=== PATIENT | male | born 1980 | race Caucasian/White ===

== ENCOUNTER → 2017-08-31 | Outpatient (CLI) | payer OTHER ==
--- NOTE | 2017-08-31 13:57 | KCIC ---
Ultrasound scrotum 08/31/2017 CLINICAL INDICATION: Left scrotal and inguinal pain. Possible hernia. COMPARISON: None. FINDINGS: Right testis measures 4.4 x 2.2 x 2.1 cm with homogeneous echotexture. There is normal intratesticular blood flow. There is a tiny cyst in the right epididymal head measuring up to 0.6 cm. Left testis measures 3.4 x 2.8 x 2.5 cm with homogeneous echotexture. There is normal intratesticular blood flow. There is enlargement of the area of the epididymis which likely represents a appendix testis without evidence of torsion. There is a small left hydrocele. IMPRESSION: 1. Asymmetric enlargement at the area of the epididymal head with no associated hypervascularity. Findings may represent a normal testicular appendage, however early epididymitis cannot be excluded. Clinical correlation and follow-up testicular ultrasound is recommended. 2. Small left hydrocele. 3. Small right epididymal head cyst, likely spermatocele. Electronically signed by: Feng Bunch MD (08/31/2017 1:53 PM) [id number]
== END | disposition home or self-care (01) ==
LOC: KCIC US 11:47
PROVIDERS: ATTEND Family Medicine
DX: N43.3 Hydrocele, unspecified (principal)
CPT/HCPCS: 76870

== ENCOUNTER 2021-03-25 21:18 | Inpatient (IN) | payer OTHER ==
[~2021-03-25] VITALS: Ht 188 cm; Wt 259.1 kg
[~2021-03-25 21:18] MED LIST: ATOR10TA60 PO; COLC0.6T34 PO; FERR240T2 PO; FURO80TA72 PO; HYDR25TA10 PO; LINE600T12 PO; LISI-130 PO; LOSA25TA54 PO; METF500T16 PO; METO-239 PO; NYST15PO2 TP; TORS100T3 PO
--- NOTE | 2021-03-26 03:00 | PHYS DOC ---
Past Medical History Past Medical History: Hypertension Additional Past Medical Histor: pre-DM, iron deficiency, "lipidemia",MORBID OBESITY Past Surgical History: Other Additional Past Surgical Histo: umbilical hernia repair, BLE varicose vein stripping Smoking Status: Current Every Day Smoker Alcohol Use: None General Adult EDM: Chief Complaint: WEIGHT GAIN HPI: HPI: 40-year-old male presents for diuresis due to weight gain. Patient has a past medical history of heart failure and bilateral lower extremity edema. Patient states he has had a recent 20 pound weight gain. Weight gain is primarily in his bilateral lower extremities. Patient states primary care physician advised patient to go to the hospital for admission for IV diuresis. Patient denies any associated chest pain or shortness of breath. Review of Systems: Review of Systems: Review of systems: Constitutional symptoms- No fever, no chills. Eyes- No Discharge, No Visual Loss Respiratory symptoms- No shortness of breath, No wheezing, No Dyspnea on Exertion Cardiovascular Systems; No chest pain, No Palpitations, No syncope Gastrointestinal symptoms: NO abdominal pain, no nausea, no vomiting or diarrhea. Genitourinary symptoms: No dysuria. Musculoskeletal symptoms: No back pain No extremity pain. Bilateral lower extremity edema NEUROLOGICAL Symptoms: No headache, no generalized weakness; No focal Weakness Skin: No rash. Heart Score: C/O Chest Pain: N/A Risk Factors: Risk Factors: DM, Current or recent (<one month) smoker, HTN, HLP, family history of CAD, obesity. Risk Scores: Score 0 - 3: 2.5% MACE over next 6 weeks - Discharge Home Score 4 - 6: 20.3% MACE over next 6 weeks - Admit for Clinical Observation Score 7 - 10: 72.7% MACE over next 6 weeks - Early Invasive Strategies Allergies: Allergies: Allergies Coded Allergies Type Severity Reaction Last Updated Verified No Known Drug Allergies 01/20/21 No Physical Exam: PE: Constitutional: Well developed, well nourished, no acute distress, non-toxic appearance. [] HENT: Normocephalic, atraumatic, bilateral external ears normal, oropharynx moist, no oral exudates, nose normal. [] Eyes: PERRLA, EOMI, conjunctiva normal, no discharge. [] Neck: Normal range of motion, no tenderness, supple, no stridor. [] Cardiovascular:Heart rate regular rhythm, no murmur [] Lungs & Thorax: Bilateral breath sounds clear to auscultation [] Abdomen: Bowel sounds normal, soft, no tenderness, no masses, no pulsatile masses. [] Skin: Warm, dry, no erythema, no rash. [] Back: No tenderness, no CVA tenderness. [] Extremities: No tenderness, no cyanosis, no clubbing, ROM intact, bilateral lower extremity edema. [] Neurologic: Alert and oriented X 3, normal motor function, normal sensory function, no focal deficits noted. [] Psychologic: Affect normal, judgement normal, mood normal. [] Current Patient Data: Vital Signs: Vital Signs Date Time Temp Pulse Resp B/P (MAP) Pulse Ox O2 Delivery O2 Flow Rate FiO2 03/25/21 22:45 97.6 96 22 147/70 (87) 96 Nasal Cannula 4.0 97.6 EKG: EKG: [] Radiology/Procedures: Radiology/Procedures: [] Impression: COMPARISON: 02/02/2021 FINDINGS: A frontal view of the chest is obtained. There are decreased lung volumes with associated diffuse interstitial prominence likely due to vascular crowding and atelectasis or interstitial infiltrate. There is no consolidation, pleural effusion or pneumothorax. There is a stable cardiac silhouette. IMPRESSION: Decreased lung volumes with associated increased interstitial opacity due to vascular crowding and atelectasis or interstitial infiltrate. There is no consolidated pneumonia. Course & Med Decision Making: Course & Med Decision Making Pertinent Labs and Imaging studies reviewed. (See chart for details) [] Dragon Disclaimer: Dragon Disclaimer: This electronic medical record was generated, in whole or in part, using a voice recognition dictation system. Departure Departure Impression: Primary Impression: Fluid overload Additional Impression: Bilateral edema of lower extremity Ruled Out: CHF (congestive heart failure) Disposition: ADMITTED INPATIENT Admitting Physician: THONY Condition: STABLE Referrals: DELIA CARRIZALES PA-C (PCP) MEGAN GUZMAN DO Mar 26, 2021 03:00
[2021-03-26] MEDS ORDERED: FUROSEMIDE 40 MG/4 ML VIAL. IVP ONE ×2 (03:15→14:30)
[2021-03-26 04:39] LABS: BASO % 0 % (0-3); EOS # 0.4 x10^3/uL (0.0-0.7); EOS % 4 % (0-3); HEMATOCRIT 36.1 % (39.0-53.0); HEMOGLOBIN 11.3 g/dL (13.0-17.5); LYMPH # 1.3 x10^3/uL (1.0-4.8); LYMPH % 16 % (24-48); MEAN CORPUSCULAR HEMOGLOBIN 27 pg (25-35); MEAN CORPUSCULAR HGB CONC 31 g/dL (31-37); MEAN CORPUSCULAR VOLUME 85 fL (79-100); MONO # 0.5 x10^3/uL (0.0-1.1); MONO % 6 % (0-9); NEUT # 6.1 x10^3/uL (1.8-7.7); NEUT % 74 % (31-73); PLATELET COUNT 244 x10^3/uL (140-400); RED BLOOD COUNT 4.24 x10^6/uL (4.30-5.70); RED CELL DISTRIBUTION WIDTH 20.1 % (11.5-14.5); WHITE BLOOD COUNT 8.3 x10^3/uL (4.0-11.0)
[2021-03-26 04:41] LABS: BLOOD UREA NITROGEN 12 mg/dL (8-26); BUN/CREATININE RATIO 17 (6-20); CALCIUM 8.9 mg/dL (8.5-10.1); CARBON DIOXIDE 42 mmol/L (21-32); CHLORIDE 100 mmol/L (98-107); CREATININE 0.7 mg/dL (0.7-1.3); GFR 124.9; GLUCOSE 132 mg/dL (70-99); POTASSIUM 4.1 mmol/L (3.5-5.1); SODIUM 139 mmol/L (136-145)
[2021-03-26 04:47] LABS: ALBUMIN 2.9 g/dL (3.4-5.0); ALBUMIN/GLOBULIN RATIO 0.6 (1.0-1.7); TOTAL PROTEIN 7.4 g/dL (6.4-8.2)
[2021-03-26 04:48] LABS: ALK PHOS 51 U/L (46-116); ALT (SGPT) 29 U/L (16-63); AST (SGOT) 26 U/L (15-37); TOTAL BILIRUBIN 0.6 mg/dL (0.2-1.0)
[2021-03-26 05:00] VITALS: BP 150/74
[2021-03-26] MEDS ORDERED: TORS100T3 PO (05:24)
[2021-03-26 05:39] LABS: PLT ESTIMATE ADEQUATE (ADEQUATE)
[2021-03-26 05:40] LABS: ANISOCYTOSIS MOD; POLYCHROMASIA SLIGHT
[2021-03-26 07:00] VITALS: BP 108/41
--- NOTE | 2021-03-26 08:07 | RAD ---
EXAM: Chest, single view. HISTORY: Shortness of breath. COMPARISON: 02/02/2021 FINDINGS: A frontal view of the chest is obtained. There are decreased lung volumes with associated d iffuse interstitial prominence likely due to vascular crowding and atelectasis or interstitial infilt rate. There is no consolidation, pleural effusion or pneumothorax. There is a stable cardiac silhouet te. IMPRESSION: Decreased lung volumes with associated increased interstitial opacity due to vascular clinical microbiologist wding and atelectasis or interstitial infiltrate. There is no consolidated pneumonia. Electronically signed by: Elodia Rodriguez MD (03/26/2021 8:05 AM) [id number]
--- NOTE | 2021-03-26 10:23 | NUR ---
SW following. Discussed with RN, pt from home with family, 5L (uses 3-5L at home), cardiac diet. Wound care consulted. RN advised no SW needs at this time. SW will continue to follow.
[2021-03-26 11:00] VITALS: BP 122/53
--- NOTE | 2021-03-26 12:59 | HP ---
ADMIT DATE: 03/26/2021 CHIEF COMPLAINT: Shortness of breath and swelling. HISTORY OF PRESENT ILLNESS: The patient is a pleasant middle-aged white male who has known heart failure. He basically presented with volume overload. He appears to be in acute on chronic systolic and diastolic heart failure, rates his symptoms at 9/10, has been occurring for several days. He increased his home meds but that did not work. I discussed the case with ER physician. We admitted the patient with consultation to Cardiology and the wound care team. PAST MEDICAL HISTORY: Obesity, CHF, hypertension, hyperlipidemia, wounds, iron deficiency anemia, umbilical hernia repair, bilateral lower extremity varicose vein stripping, tobacco abuse. ALLERGIES: None. FAMILY HISTORY: Hypertension. SOCIAL HISTORY: Does not drink, smoke or take drugs. MEDICATIONS: Reviewed, please refer to the MRAD. REVIEW OF SYSTEMS: EXTREMITIES: He complains of edema and swelling. PULMONARY: He complains of shortness of breath. GENERAL: No history of weight change, weakness or fevers. SKIN: No bruising, hair changes or rashes. EYES: No blurred, double or loss of vision. NOSE AND THROAT: No history of nosebleeds, hoarseness or sore throat. HEART: No history of palpitations, chest pain or shortness of breath on exertion. GASTROINTESTINAL: Denies changes in appetite, nausea, vomiting, diarrhea or constipation. GENITOURINARY: No history of frequency, urgency, hesitancy or nocturia. NEUROLOGIC: Denies history of numbness, tingling, tremor or weakness. PSYCHIATRIC: No history of panic, anxiety or depression. ENDOCRINE: No history of heat or cold intolerance, polyuria or polydipsia. PHYSICAL EXAMINATION: ABDOMEN: He is morbidly obese. EXTREMITIES: He has 3+ edema. PULMONARY: He has bibasilar crackles. VITALS: Within normal limits and are stable. GENERAL: No apparent distress. Alert and oriented. HEENT: Normal cephalic atraumatic, external auditory canals are patent. EYES: Extraocular muscles are intact, pupils are equally round and reactive to light and accommodation. MUSCULOSKELETAL: Well developed, well nourished, good range of motion. ENDOCRINE: No thyromegaly was palpated. LYMPHATICS: No cervical chain or axillary nodes were noted. HEMATOPOIETIC: No bruising. NECK: SUPPLE, no JVD, no thyromegaly was noted. HEART: RRR, S1, S2 present. Peripheral pulses intact, no obvious murmurs were noted. NEUROLOGIC: Normal speech, normal tone. A and O x 3, moves all extremities, no obvious focal deficits. PSYCHIATRIC: Normal affect, normal mood. Stable. SKIN: No ulcerations or rashes, good skin turgor, no jaundice. VASCULAR: Good capillary refill, neurovascular bundle appears to be intact. LABORATORY DATA: White count is 8. Troponin is 0. Chest x-ray shows decreased lung volumes with increased interstitial opacity due to vascular crowding and atelectasis or infiltrate. ASSESSMENT AND PLAN: Acute on chronic systolic and diastolic heart failure, morbid obesity, edema, possible pneumonia, volume overload, anemia. The patient has been admitted. We are consulting Cardiology. Serial enzymes, serial EKGs. Will give him IV Lasix if Cardiology agrees. Wound care team to evaluate and treat. Home meds, deep venous thrombosis prophylaxis. Full code. Prognosis is guarded. [facility] [place] DR: Kirti TID: [id number]
--- NOTE | 2021-03-26 13:13 | PDOC2 ---
PRUDENCE KELLY INSURANCE COMPLIANCE ANALYST 03/26/21 1313: CARDIAC CONSULT DATE OF CONSULT Date of Consult DATE: 03/26/21 TIME: 12:57 REASON FOR CONSULT Reason for Consult: Probable CHF REFERRING PHYSICIAN Referring Physician: Nathaly SOURCE Source: Chart review, Patient HISTORY OF PRESENT ILLNESS HISTORY OF PRESENT ILLNESS This is a 40 yo male admitted for complains 20 pound wt gain. Denies any SOA or chest pain. Reports gaining about 20 pounds gradually since 02/24 when he switched from trilogy to bipap since insurance wont cover the trilogy anymore. He reports eating about 300 calories 6 times daily. He limits his hydration to 62 oz daily and urinates about the same as his intake. He exercise and has been using the same scale. He was 262 KG upon DC in january and he is currently 259 KG. He uses O2 4-5 LPM depending on what he is doing. He uses his bipap nightly but not when he is taking a nap. Denies eating extra calories. PAST MEDICAL HISTORY Cardiovascular: CHF, HTN, Hyperlipidemia Pulmonary: Other (long) Heme/Onc: Anemia NOS Musculoskeletal: Other (morbid obesity) Rheumatologic: Gout PAST SURGICAL HISTORY Past Surgical History: Hernia Repair (umbilical), Other (LE vein stripping) FAMILY HISTORY Family History: Diabetes CURRENT MEDICATIONS CURRENT MEDICATIONS Current Medications Medications (Trade) Dose Ordered Sig/Akhil Route PRN Reason Start Time Stop Time Status Last Admin Dose Admin Furosemide (Lasix) 40 mg 1X ONCE IVP 03/26/21 03:15 03/26/21 03:16 DC 03/26/21 04:56 ALLERGIES ALLERGIES: Coded Allergies: No Known Drug Allergies (Unverified , 01/20/21) ROS Review of System 14 point ROS evaluated with pertinent positives noted per HPI PHYSICAL EXAM General: Alert, Oriented X3, Cooperative, No acute distress HEENT: Atraumatic, Mucous membr. moist/pink Lungs: Other (diminished with large body habitus) Heart: Regular rate, Other Abdomen: Soft, Other (morbidly obese) Extremities: No cyanosis, Other (3+ pedal pitting edema) Skin: Other (right posterior thigh wound) Neuro: Normal speech, Sensation intact Psych/Mental Status: Mental status NL, Mood NL MUSCULOSKELETAL: Osteoarthritic changes both hands VITALS/I&O VITALS/I&O: Vital Signs Date Time Temp Pulse Resp B/P (MAP) Pulse Ox O2 Delivery O2 Flow Rate FiO2 03/26/21 11:00 98.8 100 18 122/53 (76) 90 Nasal Cannula 4.0 98.8 LABS Lab: Laboratory Tests Test 03/26/21 04:23 03/26/21 04:34 Sodium Level 139 mmol/L (136-145) Potassium Level 4.1 mmol/L (3.5-5.1) Chloride Level 100 mmol/L (98-107) Carbon Dioxide Level 42 mmol/L (21-32) H Anion Gap (6-14) Blood Urea Nitrogen 12 mg/dL (8-26) Creatinine 0.7 mg/dL (0.7-1.3) Estimated GFR (Cockcroft-Gault) 124.9 BUN/Creatinine Ratio 17 (6-20) Glucose Level 132 mg/dL (70-99) H Calcium Level 8.9 mg/dL (8.5-10.1) Total Bilirubin 0.6 mg/dL (0.2-1.0) Aspartate Amino Transferase (AST) 26 U/L (15-37) Alanine Aminotransferase (ALT) 29 U/L (16-63) Alkaline Phosphatase 51 U/L (46-116) Troponin I Quantitative < 0.017 ng/mL (0.000-0.055) DY-Ned-K-Type Natriuretic Peptide 120 pg/mL (0-124) Total Protein 7.4 g/dL (6.4-8.2) Albumin 2.9 g/dL (3.4-5.0) L Albumin/Globulin Ratio 0.6 (1.0-1.7) L White Blood Count 8.3 x10^3/uL (4.0-11.0) Red Blood Count 4.24 x10^6/uL (4.30-5.70) L Hemoglobin 11.3 g/dL (13.0-17.5) L Hematocrit 36.1 % (39.0-53.0) L Mean Corpuscular Volume 85 fL (79-100) Mean Corpuscular Hemoglobin 27 pg (25-35) Mean Corpuscular Hemoglobin Concent 31 g/dL (31-37) Red Cell Distribution Width 20.1 % (11.5-14.5) H Platelet Count 244 x10^3/uL (140-400) Neutrophils (%) (Auto) 74 % (31-73) H Lymphocytes (%) (Auto) 16 % (24-48) L Monocytes (%) (Auto) 6 % (0-9) Eosinophils (%) (Auto) 4 % (0-3) H Basophils (%) (Auto) 0 % (0-3) Neutrophils # (Auto) 6.1 x10^3/uL (1.8-7.7) Lymphocytes # (Auto) 1.3 x10^3/uL (1.0-4.8) Monocytes # (Auto) 0.5 x10^3/uL (0.0-1.1) Eosinophils # (Auto) 0.4 x10^3/uL (0.0-0.7) Basophils # (Auto) 0.0 x10^3/uL (0.0-0.2) Platelet Estimate Adequate (ADEQUATE) Polychromasia Slight Basophilic Stippling Present Anisocytosis Mod Laboratory Tests 03/26/21 04:34 Laboratory Tests 03/26/21 04:23 ECHOCARDIOGRAM ECHOCARDIOGRAM <Conclusion> The systolic function is low normal. EF 50% Septal motion consistent with conduction abnormality. Otherwise, grossly normal wall motion. Technically very limited images. The right ventricle is moderately dilated. RV Systolic function is mildly reduced. Doppler and Color Flow revealed trace tricuspid regurgitation with an estimated PAP of 52 mmHg. There is mild-moderate pulmonary hypertension. DATE: 01/22/21 [id number] ASSESSMENT/PLAN ASSESSMENT/PLAN 1. Chronic lymphedema with Venous insufficiency and hx of leg vein stripping: exacerbated by heavy wt 2. Chronic diastolic CHF/cor pulmonale: clinically no acute CHF. leg edema is likely due to above and obesity 3. HTN: controlled mostly 4. HLP: on statin 5. Severely morbid obesity: BMI at 73 6. Chronic respiratory failure with LONG/OHS: home bipap and uses 4-5 LPM home O2 continuous 7. Metabolic syndrome 8. Right posterior thigh wound: per PCP Recommendations 1. Reported 20 pound wt gain in 1 month which is disproportionate to clinical findings and reported compliance on his diet, meds and fluid intake. In addition his wt is actually better at 259 Kg compared to his admission from 01/2021. IV lasix today and will transition to his large dose home torsemide tomorrow depending on his renal function and UOP. Daily wt. 2. Continue bipap, he has been denied trilogy coverage 3. Continue home BP regimen. BMP in AM 4. Will need bariatric referral CINDY CASTREJON MD 03/26/211916: CARDIAC CONSULT ASSESSMENT/PLAN ASSESSMENT/PLAN The patient was seen and interviewed as well as examined at the bedside. The chart was reviewed. The case was discussed. Agree with the plan of care. PRUDENCE KELLY APRN Mar 26, 2021 13:13 CINDY CASTREJON MD Mar 26, 2021 19:17
[2021-03-26] MEDS: cefTRIAXone IV Push 1 GM VIAL. IVP SCH (13:42)
[2021-03-26] MEDS: LOSARTAN POTASSIUM 25 MG TABLET. PO SCH (14:53)
[2021-03-26] MEDS: METOPROLOL SUCC 24HR ER 25 MG TAB.ER.24H. PO SCH (14:54)
[2021-03-26 15:00] VITALS: BP 135/66
--- NOTE | 2021-03-26 15:02 | NUR ---
Wound/Ostomy Care Wound Type/Assessment: Patient seen per wound care consult. See wound assessment. Patient was seen in the clinic on Wednesday regarding the wound to the right leg which is due to lymphedema. Area is open to air at this time. Drainage is minimal, and patient states he is doing better. Treatment Recommendations/Plan: Leave open to air and use chux for drainage. Education provided: Patient educated on PU prevention. Offloading surface/device: N/A Recommended Referrals/Tests: N/A Discharge Recommendations for dressings: No dressings at this time. This is a lymphedema issue. Bed lowered and call light in reach.
--- NOTE | 2021-03-26 18:20 | NUR ---
Pt morbidly obese, does ambulate via self and SBA. Has a wide gait and side to side balance d/t being obese. Is a fall risk Addendum: 03/26/21 at 1824 by DAVEY GR LPN LPN Amended: Links added.
[2021-03-26 19:00] VITALS: BP 150/81
[2021-03-26] MEDS: ATORVASTATIN CALCIUM 10 MG TABLET. PO SCH (20:41)
[2021-03-26] MEDS: LACTOBACILLUS RHAMNOSUS GG 1 CAPSULE. PO SCH (20:41)
[2021-03-26 23:00] VITALS: BP 154/78
[2021-03-27 03:00] VITALS: BP 151/72
[2021-03-27 05:56] LABS: BASO % 0 % (0-3); EOS # 0.3 x10^3/uL (0.0-0.7); EOS % 3 % (0-3); HEMATOCRIT 37.2 % (39.0-53.0); HEMOGLOBIN 11.6 g/dL (13.0-17.5); LYMPH # 1.2 x10^3/uL (1.0-4.8); LYMPH % 15 % (24-48); MEAN CORPUSCULAR HEMOGLOBIN 27 pg (25-35); MEAN CORPUSCULAR HGB CONC 31 g/dL (31-37); MEAN CORPUSCULAR VOLUME 86 fL (79-100); MONO # 0.5 x10^3/uL (0.0-1.1); MONO % 7 % (0-9); NEUT % 75 % (31-73); PLATELET COUNT 246 x10^3/uL (140-400); RED BLOOD COUNT 4.35 x10^6/uL (4.30-5.70); RED CELL DISTRIBUTION WIDTH 20.2 % (11.5-14.5); WHITE BLOOD COUNT 7.9 x10^3/uL (4.0-11.0)
[2021-03-27 06:06] LABS: CALCIUM 8.7 mg/dL (8.5-10.1); CREATININE 0.6 mg/dL (0.7-1.3); GFR 149.2; POTASSIUM 3.6 mmol/L (3.5-5.1)
[2021-03-27 07:00] VITALS: BP 129/59
[2021-03-27] MEDS ORDERED: CONTRAST GIVEN. MC PRN (08:00)
[2021-03-27] MEDS ORDERED: IOHEXOL 300 MG/ML 100ML VIAL. IV ONE (08:00)
[2021-03-27] MEDS ORDERED: POTASSIUM CHLORIDE 20 MEQ TABLET.ER. PO ONE (08:30)
[2021-03-27] MEDS ORDERED: FUROSEMIDE 40 MG/4 ML VIAL. IVP ONE (08:30)
--- NOTE | 2021-03-27 09:23 | PDOC2 ---
CARMINE PATEL Fareed MUSIC VIDEO DIRECTOR 03/27/21 0923: CONSULT Date of Consult Date of Consult DATE: 03/27/21 TIME: 09:18 Reason for Consult Reason for Consult: thigh swelling, mass Referring Physician Referring Physician: Dr Andersen Identification/Chief Complaint Chief Complaint leg swelling, drainage Source Source: Chart review, Patient History of Present Illness Reason for Visit: Ongoing issues wit leg swelling, lymphedema --large mass to right inner that has been growing from 8 years. Does have drainage at times. Ongoing treatment for lymphedema. Worsening swelling, had drainage was reason for admission Past Medical History Cardiovascular: CHF, HTN, Hyperlipidemia Pulmonary: Other (naif) Heme/Onc: Anemia NOS Musculoskeletal: Other (morbid obesity) Rheumatologic: Gout Renal/: Chronic renal insuff Endocrine: Diabetes, Other Past Surgical History Past Surgical History: Hernia Repair (umbilical), Other (LE vein stripping) Family History Family History: Diabetes Social History ALCOHOL: none Drugs: None Lives: with Family Current Problem List Problem List Problems Medical Problems: (1) CHF (congestive heart failure) Status: Acute (2) Pulmonary vascular congestion Status: Acute Current Medications Current Medications Current Medications Furosemide (Lasix) 40 mg 1X ONCE IVP Last administered on 03/26/21at 04:56; Start 03/26/21 at 03:15; Stop 03/26/21 at 03:16; Status DC Ceftriaxone Sodium (Rocephin) 1 gm Q24H IVP Last administered on 03/26/21at 13:42; Start 03/26/21 at 13:00 Lactobacillus Rhamnosus (Culturelle) 1 cap BID PO Last administered on 03/26/21at 20:41; Start 03/26/21 at 21:00 Furosemide (Lasix) 60 mg 1X ONCE IVP Last administered on 03/26/21at 14:55; Start 03/26/21 at 14:30; Stop 03/26/21 at 14:31; Status DC Atorvastatin Calcium (Lipitor) 10 mg QHS PO Last administered on 03/26/21at 20:41; Start 03/26/21 at 21:00 Losartan Potassium (Cozaar) 25 mg DAILY PO Last administered on 03/26/21at 14:53; Start 03/26/21 at 15:00 Metoprolol Succinate (Toprol Xl) 12.5 mg DAILY PO Last administered on 7/14/21at 14:54; Start 03/26/21 at 15:00 Iohexol (Omnipaque 300 Mg/ml) 75 ml 1X ONCE IV ; Start 03/27/21 at 08:00; Stop 03/27/21 at 08:01; Status DC Info (CONTRAST GIVEN -- Rx MONITORING) 1 each PRN DAILY PRN MC SEE COMMENTS; Start 03/27/21 at 08:00; Stop 03/29/21 at 07:59 Potassium Chloride (Klor-Con) 40 meq 1X ONCE PO ; Start 03/27/21 at 08:30; Stop 03/27/21 at 08:31; Status DC Potassium Chloride (Klor-Con) 20 meq DAILYWBKFT PO ; Start 03/28/21 at 08:00 Furosemide (Lasix) 60 mg 1X ONCE IVP ; Start 03/27/21 at 08:30; Stop 03/27/21 at 08:31; Status DC Active Scripts Active Colcrys (Colchicine) 0.6 Mg Tablet 0.6 Mg PO DAILY 5 Days Lasix (Furosemide) 80 Mg Tablet 80 Mg PO BID 90 Days Nyamyc (Nystatin) 15 Gm Powder 1 Kaley TP BID 90 Days Losartan Potassium (Losartan Potassium) 25 Mg Tablet 25 Mg PO DAILY 90 Days Metoprolol Succinate ( Xl ) (Metoprolol Succinate) 25 Mg Tab.er.24h 12.5 Mg PO DAILY Atorvastatin Calcium 10 Mg Tablet 10 Mg PO QHS 90 Days Reported Torsemide 100 Mg Tablet 0.5 Tab PO BID 30 Days Ferrous Gluconate 240 Mg Tablet 324 Mg PO BID Allergies Allergies: Coded Allergies: No Known Drug Allergies (Unverified , 01/20/21) ROS General: No: Chills, Fatigue PSYCHOLOGICAL ROS: No: Anxiety, Depression Eyes: No Blurry vision, No Double vision HEENT: No: Heacaches, Sore Throat Hematological and Lymphatic: No: Bleeding Problems, Blood Clots Respiratory: No: Cough, Shortness of breath Cardiovascular: No Chest Pain, No Palpitations Gastrointestinal: No Nausea, No Vomiting Genitourinary: No Dysuria, No Hematuria Musculoskeletal: Yes Joint Pain, Yes Muscle Pain Neurological: Yes Impaired Coord/balance; No Confusion Skin: Yes Other (see hpi) Physical Exam General: Alert, Oriented X3, Cooperative HEENT: Atraumatic, PERRLA Lungs: Clear to auscultation, Normal air movement Heart: Regular rate, Normal S1, Normal S2 Abdomen: Soft, No tenderness, Other (right thigh, significant swelling, mass, chronic skin changes ) Extremities: No cyanosis Neuro: Normal speech Psych/Mental Status: Mental status NL, Mood NL Vitals VITALS Vital Signs Date Time Temp Pulse Resp B/P (MAP) Pulse Ox O2 Delivery O2 Flow Rate FiO2 03/27/21 07:00 98.2 90 18 129/59 (82) 98 Nasal Cannula 4.0 98.2 Labs Labs Laboratory Tests Test 03/26/21 04:23 03/26/21 04:34 03/27/21 03:50 Sodium Level 139 mmol/L (136-145) 145 mmol/L (136-145) Potassium Level 4.1 mmol/L (3.5-5.1) 3.6 mmol/L (3.5-5.1) Chloride Level 100 mmol/L (98-107) 102 mmol/L (98-107) Carbon Dioxide Level 42 mmol/L (21-32) 40 mmol/L (21-32) Anion Gap (6-14) 3 (6-14) Blood Urea Nitrogen 12 mg/dL (8-26) 9 mg/dL (8-26) Creatinine 0.7 mg/dL (0.7-1.3) 0.6 mg/dL (0.7-1.3) Estimated GFR (Cockcroft-Gault) 124.9 149.2 BUN/Creatinine Ratio 17 (6-20) Glucose Level 132 mg/dL (70-99) 103 mg/dL (70-99) Calcium Level 8.9 mg/dL (8.5-10.1) 8.7 mg/dL (8.5-10.1) Total Bilirubin 0.6 mg/dL (0.2-1.0) Aspartate Amino Transf (AST/SGOT) 26 U/L (15-37) Alanine Aminotransferase (ALT/SGPT) 29 U/L (16-63) Alkaline Phosphatase 51 U/L (46-116) Troponin I Quantitative < 0.017 ng/mL (0.000-0.055) TT-Ywn-A-Type Natriuretic Peptide 120 pg/mL (0-124) Total Protein 7.4 g/dL (6.4-8.2) Albumin 2.9 g/dL (3.4-5.0) Albumin/Globulin Ratio 0.6 (1.0-1.7) White Blood Count 8.3 x10^3/uL (4.0-11.0) 7.9 x10^3/uL (4.0-11.0) Red Blood Count 4.24 x10^6/uL (4.30-5.70) 4.35 x10^6/uL (4.30-5.70) Hemoglobin 11.3 g/dL (13.0-17.5) 11.6 g/dL (13.0-17.5) Hematocrit 36.1 % (39.0-53.0) 37.2 % (39.0-53.0) Mean Corpuscular Volume 85 fL (79-100) 86 fL (79-100) Mean Corpuscular Hemoglobin 27 pg (25-35) 27 pg (25-35) Mean Corpuscular Hemoglobin Concent 31 g/dL (31-37) 31 g/dL (31-37) Red Cell Distribution Width 20.1 % (11.5-14.5) 20.2 % (11.5-14.5) Platelet Count 244 x10^3/uL (140-400) 246 x10^3/uL (140-400) Neutrophils (%) (Auto) 74 % (31-73) 75 % (31-73) Lymphocytes (%) (Auto) 16 % (24-48) 15 % (24-48) Monocytes (%) (Auto) 6 % (0-9) 7 % (0-9) Eosinophils (%) (Auto) 4 % (0-3) 3 % (0-3) Basophils (%) (Auto) 0 % (0-3) 0 % (0-3) Neutrophils # (Auto) 6.1 x10^3/uL (1.8-7.7) 6.0 x10^3/uL (1.8-7.7) Lymphocytes # (Auto) 1.3 x10^3/uL (1.0-4.8) 1.2 x10^3/uL (1.0-4.8) Monocytes # (Auto) 0.5 x10^3/uL (0.0-1.1) 0.5 x10^3/uL (0.0-1.1) Eosinophils # (Auto) 0.4 x10^3/uL (0.0-0.7) 0.3 x10^3/uL (0.0-0.7) Basophils # (Auto) 0.0 x10^3/uL (0.0-0.2) 0.0 x10^3/uL (0.0-0.2) Platelet Estimate Adequate (ADEQUATE) Polychromasia Slight Basophilic Stippling Present Anisocytosis Mod Laboratory Tests Test 03/27/21 03:50 White Blood Count 7.9 x10^3/uL (4.0-11.0) Red Blood Count 4.35 x10^6/uL (4.30-5.70) Hemoglobin 11.6 g/dL (13.0-17.5) Hematocrit 37.2 % (39.0-53.0) Mean Corpuscular Volume 86 fL (79-100) Mean Corpuscular Hemoglobin 27 pg (25-35) Mean Corpuscular Hemoglobin Concent 31 g/dL (31-37) Red Cell Distribution Width 20.2 % (11.5-14.5) Platelet Count 246 x10^3/uL (140-400) Neutrophils (%) (Auto) 75 % (31-73) Lymphocytes (%) (Auto) 15 % (24-48) Monocytes (%) (Auto) 7 % (0-9) Eosinophils (%) (Auto) 3 % (0-3) Basophils (%) (Auto) 0 % (0-3) Neutrophils # (Auto) 6.0 x10^3/uL (1.8-7.7) Lymphocytes # (Auto) 1.2 x10^3/uL (1.0-4.8) Monocytes # (Auto) 0.5 x10^3/uL (0.0-1.1) Eosinophils # (Auto) 0.3 x10^3/uL (0.0-0.7) Basophils # (Auto) 0.0 x10^3/uL (0.0-0.2) Sodium Level 145 mmol/L (136-145) Potassium Level 3.6 mmol/L (3.5-5.1) Chloride Level 102 mmol/L (98-107) Carbon Dioxide Level 40 mmol/L (21-32) Anion Gap 3 (6-14) Blood Urea Nitrogen 9 mg/dL (8-26) Creatinine 0.6 mg/dL (0.7-1.3) Estimated GFR (Cockcroft-Gault) 149.2 Glucose Level 103 mg/dL (70-99) Calcium Level 8.7 mg/dL (8.5-10.1) Assessment/Plan Assessment/Plan lymphedema--chronic morbid obesity with BMI 77 CT of thigh pending, however appears chronic lymph issues, suspect no surgical plans, will FU on CT, wound care management BRIANA ALEX MD 03/28/21 0734: CONSULT Assessment/Plan Assessment/Plan Above reviewed, CT results reviewed; mass likely due to super morbid obesity with severe lymphedema. Surgery not recommended as would be associated with leonardo y high operative risks and potential severe wound complications. Recommend treatment toward CHF, and wound care, residential weight loss would be of great benefit. CARMINE PATEL APRN Mar 27, 2021 09:23 BRIANA ALEX MD Mar 28, 2021 07:34
[2021-03-27] MEDS: LACTOBACILLUS RHAMNOSUS GG 1 CAPSULE. PO SCH ×2 (11:58→20:52)
[2021-03-27] MEDS: METOPROLOL SUCC 24HR ER 25 MG TAB.ER.24H. PO SCH (11:59)
[2021-03-27] MEDS: LOSARTAN POTASSIUM 25 MG TABLET. PO SCH (12:00)
--- NOTE | 2021-03-27 12:45 | PDOC ---
[employer] PROGRESS NOTE Date of Service DOS: DATE: 03/27/21 TIME: 12:40 Chief Complaint Chief Complaint CC: LE edema b/l SOA Fluid overload Interstitial infiltrates on CXR HTN CHF Obesity Hyperlipidemia Iron Deficiency Tobacco Use B/L varicose vein stripping History of Present Illness History of Present Illness 03/27 Pt seen and examined. RONIT RN and DW case management. Pt just returned from CT. Pt is feeling better today than yesterday. HISTORY OF PRESENT ILLNESS: The patient is a pleasant middle-aged white male who has known heart failure. He basically presented with volume overload. He appears to be in acute on chronic systolic and diastolic heart failure, rates his symptoms at 9/10, has been occurring for several days. He increased his home meds but that did not work. I discussed the case with ER physician. We admitted the patient with consultation to Cardiology and the wound care team. Vitals/I&O Vitals/I&O: Vital Signs Date Time Temp Pulse Resp B/P (MAP) Pulse Ox O2 Delivery O2 Flow Rate FiO2 03/27/21 12:00 90 129/59 03/27/21 09:51 98 Nasal Cannula 5.0 03/27/21 07:00 98.2 18 98.2 I & O 03/26/21 03/26/21 03/27/21 15:00 23:00 07:00 Intake Total 120 ml 0 ml Output Total 275 ml Balance 120 ml -275 ml Physical Exam General: Alert, Oriented X3, Cooperative Heart: Regular rate, Normal S1, Normal S2 Lungs: Clear, Other Abdomen: Soft, No tenderness, Other (right thigh, significant swelling, mass, chronic skin changes ) Extremities: No cyanosis Skin: Other (right posterior thigh wound. LE edema b/l. R thigh swelling and erythema with numerous erythematous lesions.) Labs Labs: Laboratory Tests Test 03/27/21 03:50 White Blood Count 7.9 x10^3/uL (4.0-11.0) Red Blood Count 4.35 x10^6/uL (4.30-5.70) Hemoglobin 11.6 g/dL (13.0-17.5) Hematocrit 37.2 % (39.0-53.0) Mean Corpuscular Volume 86 fL (79-100) Mean Corpuscular Hemoglobin 27 pg (25-35) Mean Corpuscular Hemoglobin Concent 31 g/dL (31-37) Red Cell Distribution Width 20.2 % (11.5-14.5) Platelet Count 246 x10^3/uL (140-400) Neutrophils (%) (Auto) 75 % (31-73) Lymphocytes (%) (Auto) 15 % (24-48) Monocytes (%) (Auto) 7 % (0-9) Eosinophils (%) (Auto) 3 % (0-3) Basophils (%) (Auto) 0 % (0-3) Neutrophils # (Auto) 6.0 x10^3/uL (1.8-7.7) Lymphocytes # (Auto) 1.2 x10^3/uL (1.0-4.8) Monocytes # (Auto) 0.5 x10^3/uL (0.0-1.1) Eosinophils # (Auto) 0.3 x10^3/uL (0.0-0.7) Basophils # (Auto) 0.0 x10^3/uL (0.0-0.2) Sodium Level 145 mmol/L (136-145) Potassium Level 3.6 mmol/L (3.5-5.1) Chloride Level 102 mmol/L (98-107) Carbon Dioxide Level 40 mmol/L (21-32) Anion Gap 3 (6-14) Blood Urea Nitrogen 9 mg/dL (8-26) Creatinine 0.6 mg/dL (0.7-1.3) Estimated GFR (Cockcroft-Gault) 149.2 Glucose Level 103 mg/dL (70-99) Calcium Level 8.7 mg/dL (8.5-10.1) Review of Systems Review of Systems: Denies Chest pain. Denies abdominal pain. Assessment and Plan Assessmemt and Plan Problems Medical Problems: (1) CHF (congestive heart failure) Status: Acute (2) Pulmonary vascular congestion Status: Acute Assessment: CC: LE edema b/l SOA Fluid overload Interstitial infiltrates on CXR HTN CHF Obesity Hyperlipidemia Iron Deficiency Tobacco Use B/L varicose vein stripping Plan: Awaiting CT results Appreciate Subspecialist input Continue Antibiotics Trend labs DVT prophylaxis Continue home meds Full Code Discharge disposition Pending. Comment Review of Relevant I have reviewed the following items jeet (where applicable) has been applied. Medications: Current Medications Medications (Trade) Dose Ordered Sig/Akhil Route PRN Reason Start Time Stop Time Status Last Admin Dose Admin Ceftriaxone Sodium (Rocephin) 1 gm Q24H IVP 03/26/21 13:00 03/26/21 13:42 Lactobacillus Rhamnosus (Culturelle) 1 cap BID PO 03/26/21 21:00 03/27/21 11:58 Furosemide (Lasix) 60 mg 1X ONCE IVP 03/26/21 14:30 03/26/21 14:31 DC 03/26/21 14:55 Atorvastatin Calcium (Lipitor) 10 mg QHS PO 03/26/21 21:00 03/26/21 20:41 Losartan Potassium (Cozaar) 25 mg DAILY PO 03/26/21 15:00 03/27/21 12:00 Metoprolol Succinate (Toprol Xl) 12.5 mg DAILY PO 03/26/21 15:00 03/27/21 11:59 Potassium Chloride (Klor-Con) 40 meq 1X ONCE PO 03/27/21 08:30 03/27/21 08:31 DC 03/27/21 12:00 Furosemide (Lasix) 60 mg 1X ONCE IVP 03/27/21 08:30 03/27/21 08:31 DC 03/27/21 12:01 Justifications for Admission Other Justification MINESH EASLEY III DO Mar 27, 2021 12:45
--- NOTE | 2021-03-27 13:20 | PDOC ---
MEGAN HIRSCH SALES COACH 03/27/21 1320: CARDIO Progress Notes Date and Time Date of Service 03/27/21 Time of Evaluation 1320 Subjective Subjective: No Chest Pain, No shortness of breath, No Palpitations, Other (c/o ongoing LE edema ) Vitals Vitals Vital Signs Date Time Temp Pulse Resp B/P (MAP) Pulse Ox O2 Delivery O2 Flow Rate FiO2 03/27/21 12:00 90 129/59 03/27/21 09:51 98 Nasal Cannula 5.0 03/27/21 07:00 98.2 18 98.2 Weight Weight [ ] Input and Output Intake and Output Intake and Output 03/27/21 07:00 Intake Total 120 ml Output Total 275 ml Balance -155 ml Intake Oral 120 ml Output Urine Total 275 ml # Voids 3 Laboratory Labs Laboratory Tests Test 03/27/21 03:50 White Blood Count 7.9 x10^3/uL (4.0-11.0) Red Blood Count 4.35 x10^6/uL (4.30-5.70) Hemoglobin 11.6 g/dL (13.0-17.5) Hematocrit 37.2 % (39.0-53.0) Mean Corpuscular Volume 86 fL (79-100) Mean Corpuscular Hemoglobin 27 pg (25-35) Mean Corpuscular Hemoglobin Concent 31 g/dL (31-37) Red Cell Distribution Width 20.2 % (11.5-14.5) Platelet Count 246 x10^3/uL (140-400) Neutrophils (%) (Auto) 75 % (31-73) Lymphocytes (%) (Auto) 15 % (24-48) Monocytes (%) (Auto) 7 % (0-9) Eosinophils (%) (Auto) 3 % (0-3) Basophils (%) (Auto) 0 % (0-3) Neutrophils # (Auto) 6.0 x10^3/uL (1.8-7.7) Lymphocytes # (Auto) 1.2 x10^3/uL (1.0-4.8) Monocytes # (Auto) 0.5 x10^3/uL (0.0-1.1) Eosinophils # (Auto) 0.3 x10^3/uL (0.0-0.7) Basophils # (Auto) 0.0 x10^3/uL (0.0-0.2) Sodium Level 145 mmol/L (136-145) Potassium Level 3.6 mmol/L (3.5-5.1) Chloride Level 102 mmol/L (98-107) Carbon Dioxide Level 40 mmol/L (21-32) Anion Gap 3 (6-14) Blood Urea Nitrogen 9 mg/dL (8-26) Creatinine 0.6 mg/dL (0.7-1.3) Estimated GFR (Cockcroft-Gault) 149.2 Glucose Level 103 mg/dL (70-99) Calcium Level 8.7 mg/dL (8.5-10.1) Physical Exam HEENT: Neck Supple W Full Motion Chest: Symmetric LUNGS: Other (diminished bases) Heart: RRR (heart tones regular, not on tele) Abdomen: Other (obese) Extremities: Other (2+ bilateral LE ) Neurology: alert, oriented, follow commands Assessment Assessment 1. Chronic lymphedema with venous insufficiency 2. Chronic diastolic CHF/cor pulmonale 3. Hypertension; controlled 4. Hyperlipidemia; on statin 5. Severely morbid obesity: BMI at 73 6. Chronic respiratory failure with LONG/OHS: home bipap and uses 4-5 LPM home O2 continuous. 7. Metabolic syndrome 8. Right posterior thigh wound Recommendations Ongoing diuresis with electrolyte replacement Monitor I & O and daily weights Wound care SS consult regarding Trilogy coverage (previously denied by insurance) Supportive care Justicifation of Admission Dx: Justifications for Admission: Justification of Admission Dx: Yes CINDY CASTREJON MD 03/31/21 1913: MEGAN HIRSCH APRN Mar 27, 2021 13:20 CINDY CASTREJON MD Mar 31, 2021 19:13
[2021-03-27] MEDS: cefTRIAXone IV Push 1 GM VIAL. IVP SCH (14:13)
[2021-03-27 15:00] VITALS: BP 114/62
--- NOTE | 2021-03-27 15:44 | RAD ---
STUDY: CT of the right lower extremity with contrast INDICATION: Lipoma. COMPARISON: None. TECHNIQUE: Axial CT imaging of the right lower extremity performed after the intravenous administrati on of 75 cc Omnipaque 300. Coronal and sagittal reformats were obtained. One or more of the following individualized dose reduction techniques were utilized for this examinat ion: 1. Automated exposure control 2. Adjustment of the mA and/or kV according to patient size 3. Use of iterative reconstruction technique. FINDINGS: The [id number] extends from above the hip joint down to the proximal tibia/fibula. A portion of th e right knee is excluded from the [id number]-mp-[id number] as are the soft tissues at several locations. The lef t hip is included in the [id number]-bd-[id number] as is a portion of the left lower extremity. The study is degr aded on account of patient obesity. No acute osseous abnormality is identified. Mild arthrosis of both hips. Age accelerated tricompartme ntal osteoarthrosis at the right hip with greatest involvement of the medial femorotibial compartment where there is [id number]. Asymmetric prominence of the soft tissues off the medial aspect of the right thigh. Marked reticulati on of the subcutaneous fat throughout this region in addition to skin thickening. No well delineated fluid collection. A portion of this soft tissue prominence appears pedunculated such as on image 93 s eries 4. No soft tissue gas. Less pronounced subcutaneous fat reticulation and skin thickening at the medial left thigh. In the region of greatest edema measures approximately 26 cm AP by 27 cm cranioca udal by 20 cm mediolateral. Partially imaged but presumed circumferential subcutaneous edema below the knees. Presumed reactive i nguinal lymph nodes. Engorged medial right thigh veins. IMPRESSION: Mass-like, partially pedunculated soft tissue prominence off the medial right thigh with edematous re ticulation of adipose tissue and skin thickening. The region measures approximately 26 x 27 x 20 cm. No soft tissue gas or well-delineated fluid collection. Though the findings could be in part from bong lulitis, given the degree of morbid obesity massive localized lymphedema should be considered. A lipo matous lesion is felt much less likely, especially as there is a similar but much smaller finding at the medial left thigh. Electronically signed by: OJ SHANE MD (03/27/2021 3:41 PM) [id number]
[2021-03-27] MEDS: FUROSEMIDE 20 MG/2 ML VIAL. IVP SCH (18:14)
[2021-03-27 19:00] VITALS: BP 117/63
--- NOTE | 2021-03-27 20:12 | NUR ---
[place] Catheter 16F 10cc was inserted without difficulty for strict I&O charting d/t Dx of fluid overload. Clear yellow urine was noted after insertion.
[2021-03-27] MEDS: ATORVASTATIN CALCIUM 10 MG TABLET. PO SCH (20:52)
[2021-03-27] MEDS: POTASSIUM CHLORIDE 20 MEQ TABLET.ER. PO SCH (20:52)
[2021-03-27 23:00] VITALS: BP 112/49
[2021-03-28 03:00] VITALS: BP 143/70
[2021-03-28 07:00] VITALS: BP_SYST 131; BP_SYST 156; BP_DIAS 54; BP_DIAS 72
[2021-03-28 07:46] LABS: BASO % 0 % (0-3); EOS # 0.4 x10^3/uL (0.0-0.7); EOS % 5 % (0-3); LYMPH # 1.3 x10^3/uL (1.0-4.8); LYMPH % 18 % (24-48); MEAN CORPUSCULAR HEMOGLOBIN 27 pg (25-35); MEAN CORPUSCULAR HGB CONC 32 g/dL (31-37); MEAN CORPUSCULAR VOLUME 85 fL (79-100); MONO # 0.4 x10^3/uL (0.0-1.1); MONO % 6 % (0-9); NEUT # 5.2 x10^3/uL (1.8-7.7); NEUT % 72 % (31-73); PLATELET COUNT 247 x10^3/uL (140-400); RED BLOOD COUNT 4.12 x10^6/uL (4.30-5.70); RED CELL DISTRIBUTION WIDTH 20.2 % (11.5-14.5); WHITE BLOOD COUNT 7.3 x10^3/uL (4.0-11.0)
[2021-03-28 07:52] LABS: CALCIUM 8.9 mg/dL (8.5-10.1); CREATININE 0.6 mg/dL (0.7-1.3); GFR 149.2; POTASSIUM 3.4 mmol/L (3.5-5.1)
[2021-03-28] MEDS ORDERED: POTASSIUM CHLORIDE 20 MEQ TABLET.ER. PO SCH (08:00)
[2021-03-28] MEDS: LOSARTAN POTASSIUM 25 MG TABLET. PO SCH (08:51)
[2021-03-28] MEDS: POTASSIUM CHLORIDE 20 MEQ TABLET.ER. PO SCH (08:52)
[2021-03-28] MEDS: METOPROLOL SUCC 24HR ER 25 MG TAB.ER.24H. PO SCH (08:52)
[2021-03-28] MEDS: FUROSEMIDE 20 MG/2 ML VIAL. IVP SCH ×2 (08:53→14:00)
[2021-03-28] MEDS: LACTOBACILLUS RHAMNOSUS GG 1 CAPSULE. PO SCH (08:54)
[2021-03-28] MEDS ORDERED: POTA20TA4 PO (10:20)
--- NOTE | 2021-03-28 10:22 | SNU/HH DC ---
DISCHARGE WITH HOME HEALTH DISCHARGE INFORMATION: Final Diagnosis: Problems Medical Problems: (1) CHF (congestive heart failure) Status: Acute (2) Pulmonary vascular congestion Status: Acute Condition on Discharge: Stable CODE STATUS: Code Status: Full HOME HEALTH: Face to Face: I certify this patient is under my care and that I, or a nurse practitioner or physician's loan officer assistant working with me, had a face to face encounter that meets the physician face to face encounter requirements with this patient on []. Medical Complications: Other (Morbid obesity volume overload cellulitis right thigh mass) [facility] For: Assess & Educate Safety RN For Eval/Treatment: Yes Physical Therapy For: Evalulation/Treatment Occupational Therapy For: Evaluation/Treatment Home Health Aide For: Self-care MACHINE II COREMAKER For: Community Resources Pt Meets Homebound Status: Poor coordination w/ amb. POST DISCHARGE ORDERS: Activity Instructions for Disc: Activity as tolerated Weight Bearing Status after Di: As tolerated Bathing Instructions: Shower-keep dressing dry, No Tub Bath until see DIET AFTER DISCHARGE: Cardiac CHECKS AFTER DISCHARGE: Checks after discharge: Check blood press - daily, Weigh Yourself Daily FOLLOW-UP: Additional Instructions: event services manager and respiratory therapy to try to arrange home trilogy TREATMENT/EQUIPMENT ORDERS: Adaptive Equipment Issued: None Discharge Respiratory Equipmen: CPAP, BiPAP CERTIFICATION STATEMENT: Certification Statement: Certification Statement: Based on the above finding, I certify that this patient is confined to the home and needs intermittent group home care, physical therapy and/or speech therapy, or continues to need occupational therapy.~ This patient is under my care, and I have initiated the establishment of the plan of care.~ This patient will be followed by myself or a community physician who will periodically review the plan of care. Home Meds Active Scripts Colchicine (COLCRYS) 0.6 Mg Tablet, 0.6 MG PO DAILY for Gout for 5 Days, #5 TAB Prov:VELASQUEZLNORIS MD 02/06/21 Furosemide (LASIX) 80 Mg Tablet, 80 MG PO BID for chf for 90 Days, #180 TAB Prov:RIFFELNORIS MD 02/06/21 Nystatin (NYAMYC) 15 Gm Powder, 1 HEATHER TP BID for rash for 90 Days, #1 MISC Prov:CASTLE,NIAL K III DO 01/27/21 Losartan Potassium (LOSARTAN POTASSIUM ) 25 Mg Tablet, 25 MG PO DAILY for htn for 90 Days, #90 TAB Prov:KAUSHALNIAL K III DO 01/27/21 Metoprolol Succinate (METOPROLOL SUCCINATE ( XL )) 25 Mg Tab.er.24h, 12.5 MG PO DAILY for htn, #90 TAB.SR Prov:KAUSHALNIAL K III DO 01/27/21 Atorvastatin Calcium (ATORVASTATIN CALCIUM) 10 Mg Tablet, 10 MG PO QHS for hld for 90 Days, #90 TAB Prov:KAUSHALNIAL K III DO 01/27/21 Reported Medications Torsemide (TORSEMIDE) 100 Mg Tablet, 0.5 TAB PO BID for chf for 30 Days, #30 TAB 0 Refills 03/26/21 Ferrous Gluconate (FERROUS GLUCONATE) 240 Mg Tablet, 324 MG PO BID for , TAB 01/21/21 KAUSHALNIAL K III DO Mar 28, 2021 10:22
[2021-03-28 11:00] VITALS: BP 132/59
--- NOTE | 2021-03-28 11:05 | PDOC ---
[employer] PROGRESS NOTE Date of Service DOS: DATE: 03/28/21 TIME: 10:53 Chief Complaint Chief Complaint CC: LE edema b/l SOA Fluid overload Interstitial infiltrates on CXR HTN CHF Obesity Hyperlipidemia Iron Deficiency Tobacco Use B/L varicose vein stripping History of Present Illness History of Present Illness 03/28 Pt seen and examined. RONIT RN and RONIT case management. Pt feels good today. Christianson is still in place, will discontinue and make sure he is able to urinate before sending home. 03/27 Pt seen and examined. RONIT RN and RONIT case management. Pt just returned from CT. Pt is feeling better today than yesterday. HISTORY OF PRESENT ILLNESS: The patient is a pleasant middle-aged white male who has known heart failure. He basically presented with volume overload. He appears to be in acute on chronic systolic and diastolic heart failure, rates his symptoms at 9/10, has been occurring for several days. He increased his home meds but that did not work. I discussed the case with ER physician. We admitted the patient with consultation to Cardiology and the wound care team. Vitals/I&O Vitals/I&O: Vital Signs Date Time Temp Pulse Resp B/P (MAP) Pulse Ox O2 Delivery O2 Flow Rate FiO2 03/28/21 08:52 94 151/54 03/28/21 07:00 98.3 16 93 Nasal Cannula 4.0 98.3 I & O 03/27/21 03/27/21 03/28/21 15:00 23:00 07:00 Intake Total 320 ml Output Total 1150 ml 1800 ml Balance -1150 ml -1480 ml Physical Exam General: Alert, Oriented X3, Cooperative Heart: Regular rate, Normal S1, Normal S2 Lungs: Clear, Other Abdomen: Soft, No tenderness, Other (right thigh, significant swelling, mass, chronic skin changes ) Extremities: No clubbing, No cyanosis, Other (b/l LE Edema) Skin: Other (right posterior thigh wound. LE edema b/l. R thigh swelling and erythema with numerous erythematous lesions.) Labs Labs: Laboratory Tests Test 03/28/21 05:40 White Blood Count 7.3 x10^3/uL (4.0-11.0) Red Blood Count 4.12 x10^6/uL (4.30-5.70) Hemoglobin 11.0 g/dL (13.0-17.5) Hematocrit 35.0 % (39.0-53.0) Mean Corpuscular Volume 85 fL (79-100) Mean Corpuscular Hemoglobin 27 pg (25-35) Mean Corpuscular Hemoglobin Concent 32 g/dL (31-37) Red Cell Distribution Width 20.2 % (11.5-14.5) Platelet Count 247 x10^3/uL (140-400) Neutrophils (%) (Auto) 72 % (31-73) Lymphocytes (%) (Auto) 18 % (24-48) Monocytes (%) (Auto) 6 % (0-9) Eosinophils (%) (Auto) 5 % (0-3) Basophils (%) (Auto) 0 % (0-3) Neutrophils # (Auto) 5.2 x10^3/uL (1.8-7.7) Lymphocytes # (Auto) 1.3 x10^3/uL (1.0-4.8) Monocytes # (Auto) 0.4 x10^3/uL (0.0-1.1) Eosinophils # (Auto) 0.4 x10^3/uL (0.0-0.7) Basophils # (Auto) 0.0 x10^3/uL (0.0-0.2) Sodium Level 141 mmol/L (136-145) Potassium Level 3.4 mmol/L (3.5-5.1) Chloride Level 100 mmol/L (98-107) Carbon Dioxide Level 39 mmol/L (21-32) Anion Gap 2 (6-14) Blood Urea Nitrogen 11 mg/dL (8-26) Creatinine 0.6 mg/dL (0.7-1.3) Estimated GFR (Cockcroft-Gault) 149.2 Glucose Level 102 mg/dL (70-99) Calcium Level 8.9 mg/dL (8.5-10.1) Review of Systems Review of Systems: Denies abdominal pain. Denies Chest pain. Assessment and Plan Assessmemt and Plan Problems Medical Problems: (1) CHF (congestive heart failure) Status: Acute (2) Pulmonary vascular congestion Status: Acute Assessment: CC: LE edema b/l SOA Fluid overload Interstitial infiltrates on CXR HTN CHF Obesity Hyperlipidemia Iron Deficiency Tobacco Use B/L varicose vein stripping Plan: Plan to D/C today Discontinue Christianson PO Diuretic Appreciate Subspecialist input Continue Antibiotics Trend labs DVT prophylaxis Continue home meds Full Code Comment Review of Relevant I have reviewed the following items jeet (where applicable) has been applied. Medications: Current Medications Medications (Trade) Dose Ordered Sig/Akhil Route PRN Reason Start Time Stop Time Status Last Admin Dose Admin Potassium Chloride (Klor-Con) 20 meq BID PO 03/27/21 21:00 03/28/21 08:52 Furosemide (Lasix) 60 mg [id number] IVP 03/27/21 16:30 03/28/21 08:53 Justifications for Admission Other Justification MINESH EASLEY III DO Mar 28, 2021 11:05
--- NOTE | 2021-03-28 12:17 | NUR ---
SW following. Discussed with RN, discharge order for home with home health. Chi Reza RN notified. RN advised no further SW needs. Addendum: 03/28/21 at 1540 by CECE CONNOR SW Chi Reza RN met with pt, pt was about to be discharged from home health services and follow up in the wound clinic. Decision made to not discharge home with home health, but with self care and follow up in the wound care clinic.
[2021-03-28] MEDS: cefTRIAXone IV Push 1 GM VIAL. IVP SCH (13:00)
--- NOTE | 2021-03-28 15:08 | DS ---
DATE OF DISCHARGE: 03/28/2021 ADMISSION DIAGNOSES: Fluid overload, super morbid obesity, severe lower extremity edema, hypoxia. DISCHARGE DIAGNOSES: 1. Resolving respiratory failure secondary to heart failure (acute on chronic systolic and diastolic). 2. Super morbid obesity. 3. Bilateral lower extremity cellulitis. 4. Severe edema. 5. Iron deficiency anemia. 6. Hyperlipidemia. 7. Tobacco abuse. 8. History of varicose vein stripping. CONSULTS: General Surgery and Cardiology. PROCEDURES: None. HOSPITAL COURSE: The patient is a pleasant, morbidly obese male who weighs about 618 pounds. He basically presented with volume overload and edema. He is admitted. We diuresed him. The above consults were obtained. He had a mass in his thigh, we did do a CAT scan, it is 26 x 27 x 20 cm. The CAT scan is consistent with probable localized lymphedema versus a lipoma. Today, I saw and examined the patient. He is at his baseline. We have diuresed him. He is doing well. We are going to discharge with close outpatient followup. DISPOSITION: Home. ACTIVITY: As tolerated. DIET: Low sodium. MEDICATIONS: Please see the MRAD. They are potassium 20 b.i.d., atorvastatin 10 a day, colchicine 0.6 b.i.d., iron 325 b.i.d., Lasix 80 a day, losartan 25 a day, metoprolol 25 a day, nystatin powder and torsemide 0.5 b.i.d. TOTAL TIME: [address]: Kirti TID: [id number]
== END 2021-03-28 15:10 | disposition still patient (30) | DRG 291 ==
LOC: ER 21:18 → 4 NORTH 03-26 03:37 → OBSVTOIN 03-26 13:15
PROVIDERS: ADMIT Internal Medicine; ATTEND Internal Medicine
PROC: 5A09357 Assistance with Respiratory Ventilation, Less than 24 Consecutive Hours, Continuous Positive Airway Pressure (ICD-10-PCS; principal; 2021-03-27)
PROC: 5A09357 Assistance with Respiratory Ventilation, Less than 24 Consecutive Hours, Continuous Positive Airway Pressure (ICD-10-PCS; 2021-03-28)
DX: I11.0 Hypertensive heart disease with heart failure (principal); J96.20 Acute and chronic respiratory failure, unspecified whether with hypoxia or hypercapnia; L03.115 Cellulitis of right lower limb; L03.116 Cellulitis of left lower limb; Z68.45 Body mass index [BMI] 70 or greater, adult; I50.43 Acute on chronic combined systolic (congestive) and diastolic (congestive) heart failure; D50.9 Iron deficiency anemia, unspecified; E11.22 Type 2 diabetes mellitus with diabetic chronic kidney disease; E66.01 Morbid (severe) obesity due to excess calories; E88.81 Metabolic syndrome and other insulin resistance; E78.5 Hyperlipidemia, unspecified; I27.81 Cor pulmonale (chronic); I87.2 Venous insufficiency (chronic) (peripheral); I89.0 Lymphedema, not elsewhere classified; N18.9 Chronic kidney disease, unspecified; Z72.0 Tobacco use; Z82.49 Family history of ischemic heart disease and other diseases of the circulatory system; Z83.3 Family history of diabetes mellitus
CPT/HCPCS: 36415; 71045; 73701; 80048; 80053; 83880; 84484; 85025; 94660; 94760; 96374; 96375; G0378; G0379; J0696; J1940; 99285-25

== ENCOUNTER 2021-06-30 09:01 | Emergency (ER) | payer OTHER ==
[~2021-06-30] VITALS: Ht 188 cm; Wt 241.0 kg
[~2021-06-30 09:01] MED LIST changes: +POTA-121 PO
[2021-06-30 10:02] LABS: BASO % 0 % (0-3); EOS # 0.1 x10^3/uL (0.0-0.7); EOS % 2 % (0-3); HEMOGLOBIN 12.5 g/dL (13.0-17.5); LYMPH # 1.2 x10^3/uL (1.0-4.8); LYMPH % 21 % (24-48); MEAN CORPUSCULAR HEMOGLOBIN 26 pg (25-35); MEAN CORPUSCULAR HGB CONC 31 g/dL (31-37); MEAN CORPUSCULAR VOLUME 82 fL (79-100); MONO # 0.5 x10^3/uL (0.0-1.1); MONO % 9 % (0-9); NEUT # 3.9 x10^3/uL (1.8-7.7); NEUT % 67 % (31-73); PLATELET COUNT 290 x10^3/uL (140-400); RED BLOOD COUNT 4.88 x10^6/uL (4.30-5.70); RED CELL DISTRIBUTION WIDTH 18.8 % (11.5-14.5); WHITE BLOOD COUNT 5.7 x10^3/uL (4.0-11.0)
--- NOTE | 2021-06-30 10:10 | RAD ---
INDICATION: Reason: Short of breath cough / Spl. Instructions: / History: COMPARISON: March 26, 2021 FINDINGS: Single view of chest obtained. Cardiomediastinal silhouette is again enlarged. Mild patchy opacity bilaterally. Hypoexpansion IMPRESSION: * Mild patchy opacities in the bilateral lungs which could be from atelectasis or infiltrate * Enlarged cardiomediastinal silhouette. Electronically signed by: Terence Ybarra MD (06/30/2021 10:07 AM) [id number]
--- NOTE | 2021-06-30 10:14 | PHYS DOC ---
Past Medical History Past Medical History: Hypertension Additional Past Medical Histor: pre-DM, iron deficiency, "lipidemia",MORBID OBESITY Past Surgical History: Other Additional Past Surgical Histo: umbilical hernia repair, BLE varicose vein stripping Smoking Status: Never Smoker Alcohol Use: None General Adult EDM: Chief Complaint: SHORTNESS OF BREATH HPI: HPI: Patient is a 41-year-old male presents to the emergency department stating his primary care physician Dr. Marquez told him to come to the emergency department for work-up related to a 2-week history of dry cough, is normally on 2 L of oxygen per nasal cannula and reports O2 sats dropping into the 70s today, was told to increase his O2 to 6 L per nasal cannula by his primary care physician. Patient denies chest pain, denies shortness of breath at rest however does become more short of breath when walking or minimal activity. Denies nausea, vomiting, diarrhea. Denies nasal congestion. States he was started on Augmentin regimen this past Wednesday for a possible sinus infection diagnosed through video telemed conference with primary care physician, states antibiotics have not helped. Patient reports a past medical history of hypertension, hypercholesterol, congestive heart failure. Patient reports past surgical history history of hernia repair, lower extremity venous stripping years ago. Patient denies cigarette smoking, denies alcohol use, denies drug use, denies receiving the COVID-19 virus vaccination series, has not had a flu shot in 2020 for patient denies allergies to medications, denies other physical complaints or physical concerns. Reports younger daughter with sinus infection symptoms at home. No other family members living in his home with similar symptoms. Review of Systems: Review of Systems: 14 body systems of review of systems have been reviewed. See HPI for pertinent positives and negative responses, otherwise all other systems are negative, nonpertinent or noncontributory. Constitutional: Negative except as outlined in HPI above. Skin: Negative except as outlined in HPI above. Eyes: Negative except as outlined in HPI above. HENT: Negative except as outlined in HPI above. Respiratory: Negative except as outlined in HPI above. Cardiovascular: Negative except as outlined in HPI above. GI: Negative except as outlined in HPI above. : Negative except as outlined in HPI above. Musculoskeletal: Negative except as outlined in HPI above. Integument: Negative except as outlined in HPI above. Neurologic: Negative except as outlined in HPI above. Endocrine: Negative except as outlined in HPI above. Lymphatic: Negative except as outlined in HPI above. Psychiatric: Negative except as outlined in HPI above. Heart Score: C/O Chest Pain: No Risk Factors: Risk Factors: DM, Current or recent (<one month) smoker, HTN, HLP, family history of CAD, obesity. Risk Scores: Score 0 - 3: 2.5% MACE over next 6 weeks - Discharge Home Score 4 - 6: 20.3% MACE over next 6 weeks - Admit for Clinical Observation Score 7 - 10: 72.7% MACE over next 6 weeks - Early Invasive Strategies Allergies: Allergies: Allergies Coded Allergies Type Severity Reaction Last Updated Verified No Known Drug Allergies 01/20/21 No Physical Exam: PE: Constitutional: Well developed, well nourished, no acute distress, non-toxic appearance. 41-year-old male in no apparent distress. HENT: Normocephalic, atraumatic. Oropharynx moist, pink, no deep tissue infectious process appreciated, patient speaking in normal voice tones. Eyes: Conjunctiva normal, no discharge. Neck: Normal range of motion, no stridor. Cardiovascular: No cyanosis appreciated, distal cap refill less than 2 seconds. Lungs & Thorax: Patient is in no respiratory distress, no audible adventitious lung sounds appreciated. Auscultation bilateral lower lobes diminished, all oth er lobes clear to auscultate. Patient 94% on 4 L per nasal cannula. Abdomen: Nontender, no abnormalities noted. Round, obese, BMI 68.2. Skin: Warm, dry, no erythema, no rash. Back: No tenderness, no deformities. Extremities: No tenderness, no cyanosis, no clubbing, ROM intact, no edema. Neurologic: Alert and oriented X 3, normal motor function, normal sensory function, no focal deficits noted. Psychologic: Affect normal, judgement normal, mood normal. Current Patient Data: Labs: Laboratory Tests Test 06/30/21 09:43 06/30/21 09:58 06/30/21 10:18 White Blood Count 5.7 x10^3/uL Red Blood Count 4.88 x10^6/uL Hemoglobin 12.5 g/dL Hematocrit 40.0 % Mean Corpuscular Volume 82 fL Mean Corpuscular Hemoglobin 26 pg Mean Corpuscular Hemoglobin Concent 31 g/dL Red Cell Distribution Width 18.8 % Platelet Count 290 x10^3/uL Neutrophils (%) (Auto) 67 % Lymphocytes (%) (Auto) 21 % Monocytes (%) (Auto) 9 % Eosinophils (%) (Auto) 2 % Basophils (%) (Auto) 0 % Neutrophils # (Auto) 3.9 x10^3/uL Lymphocytes # (Auto) 1.2 x10^3/uL Monocytes # (Auto) 0.5 x10^3/uL Eosinophils # (Auto) 0.1 x10^3/uL Basophils # (Auto) 0.0 x10^3/uL SARS-CoV-2 Antigen (Rapid) Negative Sodium Level 141 mmol/L Potassium Level 4.2 mmol/L Chloride Level 95 mmol/L Carbon Dioxide Level 43 mmol/L Anion Gap 3 Blood Urea Nitrogen 11 mg/dL Creatinine 0.7 mg/dL Estimated GFR (Cockcroft-Gault) 124.3 BUN/Creatinine Ratio 16 Glucose Level 116 mg/dL Calcium Level 8.5 mg/dL Total Bilirubin 0.6 mg/dL Aspartate Amino Transf (AST/SGOT) 39 U/L Alanine Aminotransferase (ALT/SGPT) 42 U/L Alkaline Phosphatase 70 U/L Creatine Kinase 91 U/L Creatine Kinase MB (Mass) 0.6 ng/mL Creatine Kinase MB Relative Index 0.7 % Troponin I Quantitative < 0.017 ng/mL KM-Paf-F-Type Natriuretic Peptide 32 pg/mL Total Protein 7.8 g/dL Albumin 2.8 g/dL Albumin/Globulin Ratio 0.6 Laboratory Tests Test 06/30/21 09:43 White Blood Count 5.7 x10^3/uL (4.0-11.0) Red Blood Count 4.88 x10^6/uL (4.30-5.70) Hemoglobin 12.5 g/dL (13.0-17.5) L Hematocrit 40.0 % (39.0-53.0) Mean Corpuscular Volume 82 fL (79-100) Mean Corpuscular Hemoglobin 26 pg (25-35) Mean Corpuscular Hemoglobin Concent 31 g/dL (31-37) Red Cell Distribution Width 18.8 % (11.5-14.5) H Platelet Count 290 x10^3/uL (140-400) Neutrophils (%) (Auto) 67 % (31-73) Lymphocytes (%) (Auto) 21 % (24-48) L Monocytes (%) (Auto) 9 % (0-9) Eosinophils (%) (Auto) 2 % (0-3) Basophils (%) (Auto) 0 % (0-3) Neutrophils # (Auto) 3.9 x10^3/uL (1.8-7.7) Lymphocytes # (Auto) 1.2 x10^3/uL (1.0-4.8) Monocytes # (Auto) 0.5 x10^3/uL (0.0-1.1) Eosinophils # (Auto) 0.1 x10^3/uL (0.0-0.7) Basophils # (Auto) 0.0 x10^3/uL (0.0-0.2) Laboratory Tests 06/30/21 09:43 Vital Signs: Vital Signs Date Time Temp Pulse Resp B/P (MAP) Pulse Ox O2 Delivery O2 Flow Rate FiO2 06/30/21 09:10 98.1 96 16 187/112 (137) 95 Nasal Cannula 4.0 98.1 EKG: EKG: EKG performed at 918 by ED nursing staff shows a normal sinus rhythm with left axis, heart rate 96 bpm, SD interval 0.144, QTc interval 0.458, no acute STEMI, no ACS, no acute ischemia appreciated, EKG interpreted by ED attending physician Dr. Gomez. Radiology/Procedures: Radiology/Procedures: PATIENT: HARISH OKEEFE ACCOUNT: [id number] : 1980 LOCATION: ER AGE: 41 SEX: M EXAM STATUS: PRE ER ORD. PHYSICIAN: MAGALY MIGUEL APRN REASON: Short of breath cough PROCEDURE: CHEST AP ONLY INDICATION: Reason: Short of breath cough / Spl. Instructions: / History: COMPARISON: March 26, 2021 FINDINGS: Single view of chest obtained. Cardiomediastinal silhouette is again enlarged. Mild patchy opacity bilaterally. Hypoexpansion IMPRESSION: * Mild patchy opacities in the bilateral lungs which could be from atelectasis or infiltrate * Enlarged cardiomediastinal silhouette. Electronically signed by: Terence Ybarra MD (06/30/2021 10:07 AM) Bantu LLCKTOP- [id number] Course & Med Decision Making: Course & Med Decision Making Pertinent Labs and Imaging studies reviewed. (See chart for details) 41-year-old male, vital signs reviewed, presents emergency department concerning decreased O2 saturation at home with recommendation by his primary care physician to rule out infectious pneumonia. Patient's physical presentation unremarkable for acute distress, patient's baseline O2 saturation at 95% in the emergency department with 4 L nasal cannula, cardiorespiratory work-up performed today, EKG negative, proBNP and cardiac enzymes negative. All other labs unremarkable or at baseline. Chest x-ray showed Mild patchy opacities in the bilateral lungs which could be from atelectasis or infiltrate, patient is currently on day 2 of Augmentin regimen started by his primary care physician. Discussed with patient admission to hospital, patient states he feels he is okay, states he is on an antibiotic regimen for pneumonia, states his doctor was concerned and wanted him to have a work-up to rule out severe infection. Discussed with patient labs and x-ray did not support a severe infection however would admit to hospital related to hypoxia at home, patient reports his O2 sat machine may have been malfunctioning at the time as he does not feel any more short of breath than usual, states he would like to go home and continue his ant ibiotic regimen, also stated he would return immediately to the emergency department if he had an acute onset of shortness of breath or chest pain, or fever or chills. The patient and I made a joint decision to discharge patient home continuing antibiotic regimen. Patient is amenable to ED discharge planning. The patient is not hypoxic, is on 4 L per nasal cannula at 95% O2 saturation, the patient is in no respiratory distress. There is low likelihood of cardiac component to this ED visit today. Discussed with the patient all findings and diagnostic testing as well as the need to follow-up with their primary care provider for further evaluation and treatment or return to the ED if any new or worsening symptoms. Strict return precautions were also discussed at length, the patient voiced understanding and agreement with the discharge planning. The patient was nontoxic in appearance, in no apparent distress, and hemodynamically stable at the time of disposition. Dragon Disclaimer: Dragon Disclaimer: This electronic medical record was generated, in whole or in part, using a voice recognition dictation system. Departure Departure Impression: Primary Impression: Shortness of breath Disposition: HOME / SELF CARE / HOMELESS Condition: GOOD Referrals: DELIA CARRIZALES PA-C (PCP) Patient Instructions: Shortness of Breath Additional Instructions: You were seen today in the emergency department under the guidance of your primary care physician to work-up your shortness of breath symptoms you are having at home. As we discussed, your lab values and chest x-ray did not show any significant findings however as we discussed please continue to take your antibiotic regimen as ordered by your primary care physician. You and I made a joint decision for you to be discharged home to continue your antibiotics, as we discussed please return to the emergency department immediately for any increased shortness of breath, sudden hypoxia, chest pain, or other concerns. Thank you for visiting our Emergency Department. It was a pleasure taking care of you today in the emergency department and we appreciate you trusting us with your care. If any additional problems come up don't hesitate to return to visit us. Please follow up with your primary care provider so they can plan additional care if needed and know about the problem that you had. If symptoms worsen come back to the Emergency Department. Any concerning symptoms that start such as chest pain, shortness of air, weakness or numbness on one side of the body, running high fevers or any other concerning symptoms return to the ER. EMERGENCY DEPARTMENT GENERAL DISCHARGE INSTRUCTIONS Thank you for coming to [facility] Emergency Department (ED) today and trusting us with you care. We trust that you had a positive experience in our Emergency Department. If you wish to speak to the department management, you may call the Director at [phone]. YOUR FOLLOW UP INSTRUCTIONS ARE FOLLOWS: 1. Do you have a private Doctor? If you do not have a private doctor, please ask for a resource list of physicians or clinics that may be able to assist you with follow up care. 2. The Emergency Physicain has interpreted your x-rays. The X-Ray specialist will also review them. If there is a change in the findings, you will be notified in 48 hours when at all possible. 3. A lab test or culture has been done, your results will be reviewed and you will be notified if you need a change in treatment. ADDITIONAL INSTRUCTIONS AND INFORMATION: 1. Your care today has been supervised by a physician who is specially trained in emergency care. Many problems require more than one evaluation for a complete diagnosis and treatment. We recommend that you schedule your follow up appointment as recommended to ensure complete treatment of you illness or injury. If you are unable to obtain follow up care and continue to have a problem, or if your condition worsens, we recommend that you return to the ED. 2. We are not able to safely determine your condition over the phone nor are we able to give sound medical advice over the phone. For these safety reasons, if you call for medical advice we will ask you to come to the ED for further evaluation. 3. If you have any questions regarding these discharge instructions please call the ED at [phone]. SAFETY INFORMATION: In the interest of safety, wellness, and injury prevention; we encourage you to wear your sealbelt, if you smoke; quite smoking, and we encourage family to use a protective helmet for bicycling and other sporting events that present an increased risk for head injury. IF YOUR SYMPTOMS WORSEN OR NEW SYMPTOMS DEVELOP, OR YOU HAVE CONCERNS ABOUT YOUR CONDITION; OR IF YOUR CONDITION WORSENS WHILE YOU ARE WAITING FOR YOUR FOLLOW UP APPOINTMENT; EITHER CONTACT YOUR PRIMARY CARE DOCTOR, THE PHYSICIAN WHOSE NAME AND NUMBER YOU WERE GIVEN, OR RETURN TO THE ED IMMEDIATELY. MAGALY MIGUEL APRN Jun 30, 2021 10:14
[2021-06-30 10:59] LABS: CALCIUM 8.5 mg/dL (8.5-10.1); CREATININE 0.7 mg/dL (0.7-1.3); GFR 124.3; POTASSIUM 4.2 mmol/L (3.5-5.1)
[2021-06-30 11:10] LABS: ALBUMIN 2.8 g/dL (3.4-5.0); ALBUMIN/GLOBULIN RATIO 0.6 (1.0-1.7); TOTAL BILIRUBIN 0.6 mg/dL (0.2-1.0); TOTAL PROTEIN 7.8 g/dL (6.4-8.2)
[2021-06-30 14:00] VITALS: BP 155/76
--- NOTE | 2021-06-30 16:50 | EKG ---
[facility] [address] [place] [address] Test Date: 2021-06-30 Test Time: 09:18:55 Pat Name: HARISH OKEEFE Department: Room: Gender: M Vessel Captain: : 1980 Requested By: MAGALY MIGUEL Order Number: [id number] Reading MD: Eduardo Baez MD Measurements Intervals Foster Rate: 96 P: 32 SC: 144 QRS: -24 QRSD: 90 T: 28 QT: 362 QTc: 458 Interpretive Statements SINUS RHYTHM NON-SPECIFIC ST/T CHANGES Electronically Signed On 07-01-2021 9:12:59 CDT by Eduardo Baez MD
--- NOTE | 2021-07-01 17:30 | NUR ---
IP: Informed pt of positive covid test and the need to quarantine for 10 days. Pt verbalized understanding.
== END 2021-06-30 14:28 | disposition home or self-care (01) ==
LOC: ER 09:01
DX: R06.02 Shortness of breath (principal); Z20.822 Contact with and (suspected) exposure to COVID-19; R05.9 Cough, unspecified; I10 Essential (primary) hypertension; E66.01 Morbid (severe) obesity due to excess calories; Z68.44 Body mass index [BMI] 60.0-69.9, adult
CPT/HCPCS: 36415; 71045; 80053; 82553; 83880; 84484; 85025; 87040; 87426; 93005; 99285; U0003; U0005